=== PATIENT | female | born 1970 | race Native Hawaiian/Other Pacific Islander ===

== ENCOUNTER 2016-07-22 10:37 | Emergency (ER) | payer OTHER ==
[2016-07-22 10:37] VITALS: BMI 29.2
[2016-07-22 10:48] VITALS: RESP 18
[2016-07-22 11:57] LABS: ADD MANUAL DIFF? NO
[2016-07-22 12:00] LABS: BASO # 0.02 K/mm3 (0.0-2.0); BASO % 0.3 % (0.0-3.0); EOS # 0.1 (0.0-0.7); EOS % 1.9 % (1.5-5.0); GRAN # 3.77 (1.4-6.5); GRAN % 63.6 % (50.0-68.0); LYMPH # 1.6 (1.2-3.4); LYMPH % 26.8 % (22.0-35.0); MEAN CELL VOLUME 80.8 fL (80.0-105.0); MEAN CORPUSCULAR HEMOGLOBIN 27.1 pg (25.0-35.0); MEAN CORPUSCULAR HGB CONC 33.5 g/dl (31.0-37.0); MEAN PLATELET VOLUME 8.3 fl (7.0-11.0); MONO # 0.4 (0.1-0.6); MONO % 7.4 % (1.0-6.0); PLATELET COUNT 346 10^3/uL (120.0-450.0); RED CELL DISTRIBUTION WIDTH 14.1 % (11.5-14.5); WHITE BLOOD COUNT 5.9 10^3/ul (4.5-11.0)
--- NOTE | 2016-07-22 12:03 | ED PDOC ---
Arrival/HPI - General Chief Complaint: Chest Pain Time Seen by Provider: 07/22/16 11:10 Historian: Patient - History of Present Illness Narrative History of Present Illness (Text): 07/22/16 11:47 A 46 year old female presents to the emergency department complaining of chest pain for the past 3 days. Patient reports pain is localized to the left sided and intermittent. She states in the past she had a pinching sensation to her left chest for which she was told was related to her menstrual cycle. There are no relieving or exacerbation factors. Patient denies any fever, shortness of breath or other complaints at this time. Patient has not taking any medications for the pain. Time/Duration: Other (3 days) Symptom Onset: Sudden Symptom Course: Intermittent Quality: Other Activities at Onset: Rest Modifying Factors (Text): none Context: Home Past Medical History - Provider Review Nursing Documentation Reviewed: Yes - Past Medical History Past Medical History: No Previous - Psychiatric Hx Psychophysiologic Disorder: No Hx Substance Use: No - Surgical History Hx Section: Yes - Anesthesia Hx Anesthesia: Yes - Suicidal Assessment Feels Threatened In Home Enviroment: No Family/Social History - Physician Review Nursing Documentation Reviewed: Yes Family/Social History: Unknown Family HX Smoking Status: Former Smoker Hx Alcohol Use: Yes Frequency of alcohol use: Socially Hx Substance Use: No Allergies/Home Meds Allergies/Adverse Reactions: Allergies No Known Allergies Allergy (Verified 07/22/16 10:40) Home Medications: Home Meds Medication Instructions Recorded Confirmed No Known Home Med 07/22/16 07/22/16 Review of Systems - Physician Review All systems were reviewed & negative as marked: Yes - Review of Systems Constitutional: absent: Fevers Respiratory: absent: SOB Cardiovascular: Chest Pain Physical Exam Vital Signs Reviewed: Yes Vital Signs Temp Pulse Resp BP Pulse Ox 07/22/16 14:14 98.1 F 07/22/16 14:00 81 18 102/63 98 07/22/16 12:38 63 18 104/63 99 07/22/16 10:48 97.8 F 71 18 133/50 L 99 Temperature: Afebrile Blood Pressure: Hypotensive Pulse: Regular Respiratory Rate: Normal Appearance: Positive for: Well-Appearing, Non-Toxic, Comfortable Pain Distress: None Mental Status: Positive for: Alert and Oriented X 3 - Systems Exam Head: Present: Atraumatic, Normocephalic Pupils: Present: PERRL Extroacular Muscles: Present: EOMI Conjunctiva: Present: Normal Mouth: Present: Moist Mucous Membranes Neck: Present: Normal Range of Motion Respiratory/Chest: Present: Clear to Auscultation, Good Air Exchange. No: Respiratory Distress, Accessory Muscle Use Cardiovascular: Present: Regular Rate and Rhythm, Normal S1, S2. No: Murmurs Abdomen: Present: Normal Bowel Sounds. No: Tenderness, Distention, Peritoneal Signs Back: Present: Normal Inspection Upper Extremity: Present: Normal Inspection. No: Cyanosis, Edema Lower Extremity: Present: Normal Inspection. No: Edema Neurological: Present: GCS=15, CN II-XII Intact, Speech Normal Skin: Present: Warm, Dry, Normal Color. No: Rashes Psychiatric: Present: Alert, Oriented x 3, Normal Insight, Normal Concentration Medical Decision Making ED Course and Treatment: 07/22/16 11:47 Impression: A 46 year old female with chest pain. Differential Diagnosis included but are not limited to: ACS vs. musculoskeletal Plan: -- EKG -- Chest X-ray -- Labs -- Aspirin -- Reassess and disposition Prior Visits: Notes and results from previous visits were reviewed. The patient last presented to the emergency department on 04/03/14 for evaluation of a headache. Progress Notes: EKG: Ordered, reviewed, and independently interpreted the EKG. Rate : 76 BPM Rhythm : NSR Interpretation : normal intervals, normal axis 07/22/16 13:50 Chest X-ray: Creator : Emilie Jo V. COMPARISON: No prior. FINDINGS: LUNGS: No active pulmonary disease suspect. An 8 mm nodular opacity projecting over the anterior right 1st rib is noted. A prominent costocartilaginous junction here is favored. 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 CARDIOVASCULAR: Normal. OSSEOUS STRUCTURES: As above VISUALIZED UPPER ABDOMEN: Normal. OTHER FINDINGS: None. IMPRESSION: No active disease. 07/22/16 14:30 On reevaluation the patient feels better and is in no acute distress. I have discussed the results and plan with the patient, who expresses understanding. Patient given the opportunity to ask question, all questions were answered and there is agreement with the plan to discharge the patient home. Patient is stable for discharge. Patient was instructed to follow up with physician/clinic in 1-2 days or return if symptoms persist/worsen or new concerning symptoms arise. - Lab Interpretations Lab Results: 07/22/16 11:30 07/22/16 11:30 Lab Results 07/22/16 12:50: Urine Color Light red, Urine Appearance Sl cloudy, Urine pH 6.0 , Ur Specific [place] 1.010, Urine Protein Trace H, Urine Glucose (UA) Negative , Urine Ketones Negative, Urine Blood Large H, Urine Nitrate Negative, Urine Bilirubin Negative, Urine Urobilinogen 0.2, Ur Leukocyte Esterase Trace H, Urine RBC Tntc, Urine WBC 0 - 2, Ur Epithelial Cells 0 - 2 07/22/16 11:30: Sodium 141, Potassium 4.0, Chloride 101, Carbon Dioxide 28, Anion Gap 16, BUN 10, Creatinine 0.6, Est GFR ( Amer) > 60, Est GFR (Non- Af Amer) > 60, Random Glucose 84, Calcium 9.0, Magnesium 2.3 H, Total Bilirubin 0.5, AST 24, ALT 30, Alkaline Phosphatase 63, Lactate Dehydrogenase 421, Total Creatine Kinase 89, Troponin I < 0.01, Total Protein 8.3, Albumin 4.4, Globulin 3.9, Albumin/Globulin Ratio 1.1 07/22/16 11:30: WBC 5.9 D, RBC 4.58, Hgb 12.4, Hct 37.0, MCV 80.8, MCH 27.1, MCHC 33.5, RDW 14.1, Plt Count 346, MPV 8.3, Gran % 63.6, Lymph % (Auto) 26.8, [place] % (Auto) 7.4 H, Eos % (Auto) 1.9, Baso % (Auto) 0.3, Gran # 3.77, Lymph # 1.6, [place] # 0.4, Eos # 0.1, Baso # 0.02 I have reviewed the lab results: Yes - RAD Interpretation Radiology Orders: 07/22/16 11:10 CHEST PORTABLE [RAD] Stat - Medication Orders Current Medication Orders: Discontinued Medications Aspirin (Aspirin) 325 mg PO STAT STA Stop: 07/22/16 11:11 Last Admin: 07/22/16 11:30 Dose: 325 mg - Scribe Statement The provider has reviewed the documentation as recorded by the Ajith Méndez Provider Ajith Attestation: All medical record entries made by the Ajith were at my direction and personally dictated by me. I have reviewed the chart and agree that the record accurately reflects my personal performance of the history, physical exam, medical decision making, and the department course for this patient. I have also personally directed, reviewed, and agree with the discharge instructions and disposition. Disposition/Present on Arrival - Present on Arrival Any Indicators Present on Arrival: No History of DVT/PE: No History of Uncontrolled Diabetes: No Urinary Catheter: No History of Decub. Ulcer: No History Surgical Site Infection Following: None - Disposition Have Diagnosis and Disposition been Completed?: Yes Diagnosis: Non-cardiac chest pain Disposition: HOME/ ROUTINE Disposition Time: 14:30 Patient Plan: Discharge Condition: GOOD Discharge Instructions (ExitCare): Chest Pain (ED) Additional Instructions: Thank you for letting us take care of you today. Your provider was Dr. Rebolledo. You were treated for noncardiac chest pain. The emergency medical care you received today was directed at your acute symptoms. If you were prescribed any medication, please fill it and take as directed. It may take several days for your symptoms to resolve. Return to the Emergency Department if your symptoms worsen, do not improve, or if you have any other problems. Please contact your doctor or call one of the physicians/clinics you have been referred to that are listed on the Patient Visit Information form that is included in your discharge packet. Bring any paperwork you were given at discharge with you along with any medications you are taking to your follow up visit. Our treatment cannot replace ongoing medical care by a primary care provider (PCP) outside of the emergency department. Thank you for allowing the [facility] team to be part of your care today. Follow up with your primary doctor in 2-3 days for re-evaluation. Referrals: PCP,NO [Primary Care Provider] - Follow up with primary
[2016-07-22 12:10] LABS: ALB/GLOB RATIO 1.1 (1.1-1.8); ALKALINE PHOSPHATASE 63 U/L (38-133); ALT/SGPT 30 U/L (7-56); AST/SGOT 24 U/L (15-39); BILIRUBIN,TOTAL 0.5 mg/dL (0.2-1.3); BLOOD UREA NITROGEN 10 mg/dL (7-21); CARBON DIOXIDE 28 mmol/L (21-33); CHLORIDE 101 mmol/L (98-107); GFR AFRICAN-AMERICAN > 60; GLUCOSE,RANDOM 84 mg/dL (70-110); MAGNESIUM 2.3 mg/dL (1.7-2.2); SODIUM 141 mmol/L (132-148); TOTAL PROTEIN 8.3 g/dL (5.8-8.3)
[2016-07-22 12:22] LABS: TROPONIN I < 0.01 ng/mL
[2016-07-22 12:55] LABS: URINE BILIRUBIN NEGATIVE (NEGATIVE); URINE BLOOD LARGE (NEGATIVE); URINE GLUCOSE (UA) NEGATIVE (NEGATIVE); URINE KETONE NEGATIVE (NEGATIVE); URINE LEUKOCYTE ESTERASE TRACE Leu/uL (NEGATIVE); URINE PROTEIN TRACE mg/dL (<30 mg/dL); URINE UROBILINOGEN 0.2 E.U./dL (<1 E.U./dL)
[2016-07-22 13:02] LABS: URINE APPEARANCE SL CLOUDY (CLEAR); URINE COLOR LIGHT RED (YELLOW)
[2016-07-22 13:26] LABS: URINE EPITHELIAL CELLS 0 - 2 /hpf (0-5); URINE RBC TNTC /hpf (0-2); URINE WBC 0 - 2 /hpf (0-6)
--- NOTE | 2016-07-22 13:46 | RAD ---
HISTORY: cp COMPARISON: No prior. FINDINGS: LUNGS: No active pulmonary disease suspect. An 8 mm nodular opacity projecting over the anterior right 1st rib is noted. A prominent costocartilaginous junction here is favored. 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 CARDIOVASCULAR: Normal. OSSEOUS STRUCTURES: As above VISUALIZED UPPER ABDOMEN: Normal. OTHER FINDINGS: None. IMPRESSION: No active disease.
[2016-07-22 14:12] VITALS: BP 102/63; PULSE 81; O2SAT 98
[2016-07-22 14:35] VITALS: TEMP 98.1
--- NOTE | 2016-07-22 18:45 | CARD ---
APPROVED REPORT EKG Measurement Heart [id number] <Conclusion> Normal sinus rhythm Nonspecific T wave abnormality Abnormal ECG
== END 2016-07-22 14:35 | disposition home or self-care (01) ==
LOC: ED 10:37
DX: R07.89 Other chest pain (principal); Z87.891 Personal history of nicotine dependence

== ENCOUNTER 2018-04-18 10:29 | Emergency (ER) | payer OTHER ==
[2018-04-18 11:23] VITALS: BMI 28.5
[2018-04-18 11:24] VITALS: RESP 18; TEMP 98.4; O2SAT 100
[2018-04-18] MEDS ORDERED: Sodium Chloride 0.9% 1,000 ML IV STA ×2 (11:44→13:40)
[2018-04-18 12:14] LABS: BASO # 0.01 K/mm3 (0.0-2.0); BASO % 0.2 % (0.0-3.0); EOS % 0.5 % (1.5-5.0); LYMPH # 1.5 (1.2-3.4); LYMPH % 24.9 % (22.0-35.0); MEAN CELL VOLUME 83.3 fl (80.0-105.0); MEAN CORPUSCULAR HEMOGLOBIN 27.5 pg (25.0-35.0); MEAN PLATELET VOLUME 8.3 fl (7.0-11.0); MONO # 0.5 (0.1-0.6); MONO % 8.3 % (1.0-6.0); RBC 4.73 10^6/uL (3.5-6.1); RED CELL DISTRIBUTION WIDTH 13.5 % (11.5-14.5); WHITE BLOOD COUNT 6.1 10^3/uL (4.5-11.0)
[2018-04-18 12:23] LABS: ALB/GLOB RATIO 1.2 (1.1-1.8); ALBUMIN 4.5 g/dL (3.0-4.8); ALT/SGPT 19 U/L (7-56); AST/SGOT 22 U/L (14-36); BLOOD UREA NITROGEN 8 mg/dL (7-21); CALCIUM 9.2 mg/dL (8.4-10.5); GFR NON-AFRICAN AMERICAN > 60; LIPASE 93 U/L (23-300)
[2018-04-18 12:52] LABS: PH,URINE 6.5 (4.7-8.0); URINE APPEARANCE SL CLOUDY (CLEAR); URINE BILIRUBIN NEGATIVE (NEGATIVE); URINE BLOOD MODERATE (NEGATIVE); URINE COLOR YELLOW (YELLOW); URINE GLUCOSE (UA) NEGATIVE (NEGATIVE); URINE LEUKOCYTE ESTERASE LARGE Leu/uL (NEGATIVE); URINE PROTEIN NEGATIVE mg/dL (<30 mg/dL); URINE UROBILINOGEN 0.2 E.U./dL (<1 E.U./dL)
--- NOTE | 2018-04-18 12:59 | ED PDOC ---
Arrival/HPI - General Chief Complaint: Back Pain Historian: Patient - History of Present Illness Narrative History of Present Illness (Text): 04/18/18 11:35 47 year old female, whose past medical history includes section, who presents to the Emergency department complaining of intermittent dysuria since 04/13/2018. Patient reports she increased her water and cranberry intake since symptoms started, noting mild relief. Patient states pain increases when she drinks anything other than water or cranberry juice. Patient notes back pain that started yesterday after leaning on something in Kitchen and hearing a sudden noise from her back. Patient states she took Ibuprofen for back pain, with mild relief. Patient notes her temperature was "100. something" when her checked around 03:00 this morning, stating she took Tylenol with mild relief. Patient notes very tender groin areas. Pt states she has been sensitive to salt before onset of symptoms, noting foods have been tasting more salty than usual and states it may be a coincidence. Patient states she has never experienced these symptoms in the past. Patient denies any blood in urine, cloudiness, or any other complaints. PMD: none. Last known menstrual period: 03/31/2018 Time/Duration: > week (pt notes onset has 5 days ago) Symptom Onset: Sudden Symptom Course: Unchanged Activities at Onset: Light Past Medical History - Provider Review Nursing Documentation Reviewed: Yes - Infectious Disease Hx of Infectious Diseases: None - Past Medical History Past Medical History: No Previous - Psychiatric Hx Psychophysiologic Disorder: No Hx Substance Use: No - Surgical History Hx Section: Yes (x 2) - Anesthesia Hx Anesthesia: Yes - Suicidal Assessment Feels Threatened In Home Enviroment: No Family/Social History - Physician Review Nursing Documentation Reviewed: Yes Family/Social History: No Known Family HX Smoking Status: Former Smoker Hx Alcohol Use: Yes Hx Substance Use: No Allergies/Home Meds Allergies/Adverse Reactions: Allergies No Known Allergies Allergy (Verified 04/18/18 13:14) Review of Systems - Physician Review All systems were reviewed & negative as marked: Yes - Review of Systems Genitourinary Female: Dysuria (Pt notes painful urination since 04/13/18), Other (pt notes very tender groin areas). absent: Normal, Hematuria, Vaginal Bleeding, Vaginal Discharge Musculoskeletal: Back Pain (pt notes back pain since yesterday ). absent: Normal Physical Exam Vital Signs Reviewed: Yes Vital Signs Temp Pulse Resp BP Pulse Ox 04/18/18 11:23 98.4 F 82 18 117/76 100 Temperature: Afebrile Blood Pressure: Normal Pulse: Regular Respiratory Rate: Normal Appearance: Positive for: Well-Appearing, Non-Toxic Pain Distress: Mild Mental Status: Positive for: Alert and Oriented X 3 - Systems Exam Head: Present: Atraumatic, Normocephalic Pupils: Present: PERRL Extroacular Muscles: Present: EOMI Conjunctiva: Present: Normal Mouth: Present: Moist Mucous Membranes Neck: Present: Normal Range of Motion Respiratory/Chest: Present: Clear to Auscultation, Good Air Exchange. No: Respiratory Distress, Accessory Muscle Use Cardiovascular: Present: Regular Rate and Rhythm, Normal S1, S2. No: Murmurs Abdomen: Present: Normal Bowel Sounds, Other (Mild groin and suprapubic tenderness b/l). No: Tenderness, Distention, Peritoneal Signs Genitourinary/Pelvic Exam: Present: Other (suprapubic tenderness ) Back: Present: CVA Tenderness (left-sided CVA tenderness ). No: Normal Inspection, Midline Tenderness Upper Extremity: Present: Normal Inspection. No: Cyanosis, Edema Lower Extremity: Present: Normal Inspection. No: Edema Neurological: Present: GCS=15 Skin: Present: Warm, Dry, Normal Color. No: Rashes Psychiatric: Present: Alert, Oriented x 3, Normal Insight, Normal Concentration Medical Decision Making ED Course and Treatment: 04/18/18 11:35 Impression: 47 year old female who presents to the emergency department for intermittent dysuria since 04/13/18, back pain since yesterday and very tender groin areas. Differential Diagnosis included but are not limited to: --Pyelonephritis --Kidney Stones --Cystitis Plan: -- CT of Abdomen/Pelvis w/o PO or IV contrast -- Labs -- IV fluids -- Toradol -- Urine Culture -- Urinalysis -- Reassess and disposition Prior Visits: Notes and results from previous visits were reviewed. Patient was last seen in the emergency department on 07/22/16 for chest pain for the past 3 days. Pt was discharged home in good condition, with diagnosis of non-cardiac chest pain Progress Notes: 04/18/18 13:50 Labs reviewed with no leukocytosis or electrolyte abnormalities. UA reveals many bacteria as well as positive for leukocyte esterase. Review of CT a/p shows no evidence of renal caliculi, hydronephrosis, or perinephric fat stranding. Incidental liver hemangioma and L adnexal cyst with uterine fibroid noted with patient updated and advised to follow up with [facility]. Scripts provided and opportunity to answer questions given. Patient is stable for discharge. - Lab Interpretations Lab Results: Total Bilirubin 0.2 mg/dL (0.2-1.3) 04/18/18 12:01 AST 22 U/L (14-36) 04/18/18 12:01 ALT 19 U/L (7-56) 04/18/18 12:01 Alkaline Phosphatase 62 U/L (38-126) 04/18/18 12:01 Total Protein 8.3 g/dL (5.8-8.3) 04/18/18 12:01 Albumin 4.5 g/dL (3.0-4.8) 04/18/18 12:01 Globulin 3.8 gm/dL 04/18/18 12:01 Albumin/Globulin Ratio 1.2 (1.1-1.8) 04/18/18 12:01 Lipase 93 U/L (23-300) 04/18/18 12:01 Urine Color Yellow (YELLOW) 04/18/18 11:52 Urine Appearance Sl cloudy (CLEAR) 04/18/18 11:52 Urine pH 6.5 (4.7-8.0) 04/18/18 11:52 Ur Specific [place] <= 1.005 (1.005-1.035) 04/18/18 11:52 Urine Protein Negative mg/dL (<30 mg/dL) 04/18/18 11:52 Urine Glucose (UA) Negative mg/dL (NEGATIVE) 04/18/18 11:52 Urine Ketones Negative mg/dL (NEGATIVE) 04/18/18 11:52 Urine Blood Moderate (NEGATIVE) H 04/18/18 11:52 Urine Nitrate Negative (NEGATIVE) 04/18/18 11:52 Urine Bilirubin Negative (NEGATIVE) 04/18/18 11:52 Urine Urobilinogen 0.2 E.U./dL (<1 E.U./dL) 04/18/18 11:52 Ur Leukocyte Esterase Large Mike/uL (NEGATIVE) H 04/18/18 11:52 04/18/18 12:01 04/18/18 12:01 Lab Results 04/18/18 12:01: Sodium 138, Potassium 4.5, Chloride 103, Carbon Dioxide 29, Anion Gap 10, BUN 8, Creatinine 0.5 L, Est GFR ( Amer) > 60, Est GFR (Non-Af Amer) > 60, Random Glucose 88, Calcium 9.2, Total Bilirubin 0.2, AST 22, ALT 19, Alkaline Phosphatase 62, Total Protein 8.3, Albumin 4.5, Globulin 3.8, Albumin/Globulin Ratio 1.2, Lipase 93 04/18/18 12:01: WBC 6.1, RBC 4.73, Hgb 13.0, Hct 39.4, MCV 83.3, MCH 27.5, MCHC 33.0, RDW 13.5, Plt Count 317, MPV 8.3, Neut % (Auto) 66.1, Lymph % (Auto) 24.9, [place] % (Auto) 8.3 H, Eos % (Auto) 0.5 L, Baso % (Auto) 0.2, Lymph # (Auto) 1.5, [place] # (Auto) 0.5, Eos # (Auto) 0.0, Baso # (Auto) 0.01, Absolute Neuts (auto) 4.06 04/18/18 11:52: Urine Color Yellow, Urine Appearance Sl cloudy, Urine pH 6.5, Ur Specific [place] <= 1.005, Urine Protein Negative, Urine Glucose (UA) Negative, Urine Ketones Negative, Urine Blood Moderate H, Urine Nitrate Negative, Urine Bilirubin Negative, Urine Urobilinogen 0.2, Ur Leukocyte Esterase Large H, Urine RBC 15 - 20 H, Urine WBC 25 - 30 H, Ur Epithelial Cells 4 - 5, Urine Bacteria Mod, Urine Other Uyeast I have reviewed the lab results: Yes - RAD Interpretation Narrative RAD Interpretations (Text): CT of Abdomen/Pelvis reviewed by radiologist, shows: Dictated By: Raghav Acosta Dictated Date/Time: 04/18/18 Impression: No evidence of nephrolithiasis or hydronephrosis. Findings consistent with constipation. Suspect small cyst right lobe liver. Probably uterine fibroids and suspected small left ovarian cyst. Follow-up nonemergent pelvic ultrasound could be performed further evaluation if necessary. Radiology Orders: 04/18/18 11:46 ABD & PELVIS W/O PO OR IV CONT [CT] Stat Human Resources Representative: Radiologist - Medication Orders Current Medication Orders: Discontinued Medications Sodium Chloride (Sodium Chloride 0.9%) 1,000 mls @ 999 mls/hr IV .Q1H1M STA Stop: 04/18/18 12:44 Last Admin: 04/18/18 12:04 Dose: 999 mls/hr eMAR Start Stop Document 04/18/18 12:04 OCS (Rec: 04/18/18 12:05 OCS [id number]) Intravenous Solution Start Date 04/18/18 Start Time 12:04 End Date 04/18/18 End time 13:05 Total Infusion Time 61 Ketorolac Tromethamine (Toradol) 30 mg IVP STAT STA Stop: 04/18/18 11:45 Last Admin: 04/18/18 12:05 Dose: 30 mg MAR Pain Assessment Document 04/18/18 12:05 OCS (Rec: 04/18/18 12:06 OCS [id number]) Pain Reassessment Is this a pain reassessment? No Sleep Is patient sleeping during reassessment? No Presence of Pain Presence of Pain Yes Pain Scale Used Protocol: PSCALES Pain Scale Used Numeric Location Upper or Lower Lower Pain Location Body Site Abdomen Back Description Description Constant Intensity of Pain at present 8 Pain Behavior Irritability Facial Grimacing Aggravating Factors ADL's IVP Administration Document 04/18/18 12:05 OCS (Rec: 04/18/18 12:06 [id number] Charges for Administration # of IVP Administrations 1 - Scribe Statement The provider has reviewed the documentation as recorded by the Scribe Abiola Amhadi All medical record entries made by the Scriblane were at my direction and personally dictated by me. I have reviewed the chart and agree that the record accurately reflects my personal performance of the history, physical exam, medical decision making, and the department course for this patient. I have also personally directed, reviewed, and agree with the discharge instructions and disposition. Disposition/Present on Arrival - Present on Arrival Any Indicators Present on Arrival: No History of DVT/PE: No History of Uncontrolled Diabetes: No Urinary Catheter: No History of Decub. Ulcer: No History Surgical Site Infection Following: None - Disposition Have Diagnosis and Disposition been Completed?: Yes Diagnosis: UTI (urinary tract infection) Disposition: HOME/ ROUTINE Disposition Time: 13:58 Patient Plan: Discharge Condition: STABLE Discharge Instructions (ExitCare): Urinary Tract Infection, Adult (DC), Kidney Infection (DC) Print Language: [email or web address] Additional Instructions: All medical record entries made by the Scribe were at my direction and personally dictated by me. I have reviewed the chart and agree that the record accurately reflects my personal performance of the history, physical exam, medical decision making, and the department course for this patient. I have also personally directed, reviewed, and agree with the discharge instructions and disposition. Please take medication as prescribed and follow up with Dr. Ventura for continued care Please continue to monitor your symptoms and if worsened return back to the Emergency Room Please follow up with [facility] for follow up for fibroids. Prescriptions: Cephalexin [Keflex] 500 mg PO BID 5 Days #10 capsule Phenazopyridine HCl [Pyridium] 200 mg PO DAILY #3 tablet Referrals: Kyle Ventura MD [Staff Provider] - Follow up with primary Yair Burton MD [Staff Provider] - Follow up with primary Wei Cavazos MD [Medical Doctor] - Follow up with primary Forms: [employer] ([employer])
[2018-04-18 13:01] LABS: URINE RBC 15 - 20 /hpf (0-2); URINE WBC 25 - 30 /hpf (0-6)
[2018-04-18 13:02] LABS: URINE BACTERIA MOD /hpf
[2018-04-18] MEDS ORDERED: cefTRIAXone 1 gm 1 GM/100 ML BAG IVPB STA (13:23)
--- NOTE | 2018-04-18 13:45 | CT ---
Date of service: 2018-04-18 12:23:55 PROCEDURE: CT Abdomen and Pelvis. HISTORY: Back pain with LVA tenderness r/o stone vs pyelo COMPARISON: No prior study available for comparison. TECHNIQUE: Contiguous axial images of the abdomen and pelvis without oral or intravenous contrast material. Additional 2D sagittal and coronal reformats generated. Radiation dose: Total exam DLP = 395.16 mGy-cm. This CT exam was performed using one or more of the following dose reduction techniques: Automated exposure control, adjustment of the mA and/or kV according to patient size, and/or use of iterative reconstruction technique. FINDINGS: LOWER THORAX: Unremarkable. LIVER: Liver exhibits relatively normal size measuring just over 17 cm in CC dimension.. There is a small approximately 6.4 mm rounded low-attenuation focus right lobe liver that with Hounsfield units = 11. This probably represents a small hepatic cyst. Follow-up ultrasound could confirm if necessary. GALLBLADDER AND BILE DUCTS: Unremarkable. PANCREAS: Unremarkable. No mass. No ductal dilatation. SPLEEN: Spleen exhibits normal size and attenuation pattern without mass collection or calcification. ADRENALS: No adrenal lesions. KIDNEYS AND URETERS: Kidneys demonstrate relatively symmetric size with homogeneous parenchymal attenuation... No evidence of nephrolithiasis or hydronephrosis. BLADDER: Urinary bladder is physiologically distended. No evidence of intraluminal urinary bladder calculi. REPRODUCTIVE: Suspect small fibroid along the left anterior lower uterine body locally compressing the left superolateral margin of the urinary bladder. Probable small left adnexal cyst measuring 1.5 cm. APPENDIX: Normal appendix BOWEL: Evaluation of the bowel is somewhat limited due to the lack of oral contrast material. Stomach is incompletely distended. Visualized loops of small bowel exhibit relatively normal contour and caliber. No evidence of acute mechanical small bowel obstruction. Moderate amount of stool seen throughout the large bowel consistent with fecal retention/constipation. PERITONEUM: Unremarkable. No fluid collection. No free air. Small fat containing umbilical hernia. LYMPH NODES: Unremarkable. No enlarged lymph nodes. VASCULATURE: Unremarkable. No aortic aneurysm. No aortic atherosclerotic calcification or mural plaque present. BONES: No acute compression fractures no retropulsed fragments. Vertebral bodies exhibit normal stature. Very minor multilevel degenerative spondylosis of the lower thoracic and lumbar spine. OTHER FINDINGS: None. IMPRESSION: No evidence of nephrolithiasis or hydronephrosis. Findings consistent with constipation. Suspect small cyst right lobe liver Probable uterine fibroids and suspected small left ovarian cyst. Follow-up nonemergent pelvic ultrasound could be performed further evaluation if necessary.
[2018-04-18 14:32] VITALS: BP 121/57; PULSE 66
== END 2018-04-18 15:30 | disposition home or self-care (01) ==
LOC: ED 10:29
DX: N39.0 Urinary tract infection, site not specified (principal); Z87.891 Personal history of nicotine dependence
CPT/HCPCS: 74176; 80053; 81001; 81025; 83690; 85025; 87086; 96361; 96365; 96375; 99283; J0696; J1885; J7030